=== PATIENT | male | born 1980 | race Caucasian/White ===

== ENCOUNTER → 2018-03-20 | Day surgery (SDC) | payer OTHER ==
[2018-03-17 13:44] VITALS: BMI 22.0
--- NOTE | 2018-03-19 09:02 | History and Physical ---
History & Physical Date Mar 19, 2018. Chief Complaint left ankle pain History of Present Illness The patient is a 37 year old male with complaints of left ankle pain that started after a fall from a significant height while hiking. He was taken to [facility] where he was diagnosed with a left distal tibia pilon fx and an external fixator was placed on the LLE. He also sustained a left proximal humerus fx and underwent a shoulder replacement or hemiarthroplasty on that shoulder. He is in a walking boot on the E because of a calcaneus fx. He was referred to us for surgical internal fixation of the left distal tibia pilon fx. Past Medical/Surgical History PMH: HTN, sleep apnea, depression/anxiety Social hx: 1/2 ppd smoker for 20 years, No alcohol use. Surgical hx: Left shoulder surgery. Allergies Coded Allergies: No Known Allergies (Unverified , 03/17/18) Home Medications Scheduled Enoxaparin (Lovenox), 30 MG SQ BID Fluoxetine (Prozac), 30 MG PO UD Scheduled PRN Acetaminophen (Tylenol), 1 TAB PO UD PRN for Pain Hydrocodone/Acetaminophen 5MG/325MG (Coleman 5MG/325MG), 1-2 TABLET PO UD PRN for Pain Physical Examination Skin: warm/dry, no rash Eyes: normal inspection ENT: normal ENT inspection Neck: supple, no adenopathy, trachea midline Respiratory/Chest: lungs clear, normal breath sounds, no respiratory distress Cardiovascular: regular rate, rhythm Abdomen / GI: normal bowel sounds, non tender Extremities: + pertinent finding (Left ankle: Ex fix in place. Minimal swelling. Pin sites are clean. No ROM or strength testing performed.) Neurologic/Psych: no motor/sensory deficits, alert, oriented x 3 Diagnosis Left ankle distal tibial pilon fx with ex fix on place Plan of Treatment Patient will be scheduled for an ORIF left distal tibial pilon fx and removal of ex fix. All potential risks, benefits, complications, alternatives, and rehab have been discussed with the patient and he wishes to proceed. He will be scheduled for 03.20.18 with either ASA 81 mg BID vs. Lovenox 40 mg SQ daily for DVT prophylaxis.
[~2018-03-20] VITALS: Ht 190.5 cm; Wt 81.8 kg
[~2018-03-20] MED LIST: ACET-1256 PO; ATROPINE SULFATE 0.1 MG/ML 5ML SYR IV PRN; BACITRACIN 50000 UNIT VIAL ONE; CEFAZOLIN 2000MG IV PUSH 15 ML IV SCH; CEFAZOLIN IV 2,000 MG in SYRINGE 0 ML IV SCH; CEFAZOLIN SOD 2000MG/15 ML IV PUSH ONE; DEXAMETHASONE SOD INJ 4 MG/ML VIAL ONE; ENOX30IN4 SQ; EpHEDrine SULFATE INJ 50 MG/ML AMP IV PRN; FENTANYL CITRATE INJ 50 MCG/1 ML 2 ML VIAL ONE; FLUO20CA35 PO; GLYCOPYRROLATE INJ 0.2 MG/ML VIAL ONE; HYDR-5688 PO; HYDROmorphone INJ 2 MG/ML SYR/VIAL ONE; LABETALOL HCL IV 5 MG/ML 20ML IV PRN; LACTATED RINGER'S 1000ML 1,000 ML IV SCH; LIDOCAINE HCL 2% 2 ML VIAL (20MG/ML) ONE; MEPERIDINE HCL 25 MG/ML CARP IV PRN; MIDAZOLAM HCL 1 MG/ML 2ML VIAL ONE; NEOSTIGMINE METHYLSULFATE 5 MG/5 ML SYR ONE; ONDANSETRON INJ 2 MG/ML 2 ML VIAL IV PRN; ONDANSETRON INJ 2 MG/ML 2 ML VIAL ONE; OXYC-57 PO; OXYCODONE/ACETAMINOPHEN 5-325 TAB PO PRN; PROM25TA9 PO; PROPOFOL IV EMULSION 10 MG/ML 20 ML VIAL ONE; ROCURONIUM BROMIDE 10 MG/ML 5 ML VIAL ONE; ROPIVACAINE 0.5% 5 MG/ML 30 ML VIAL ONE
--- NOTE | 2018-03-20 07:35 | History & Physical Bridge Note ---
H&P Re-Evaluation Bridge Note: I have examined the patient, reviewed the History & Physical and in the interval since the performance of the History & Physical I have noted the following changes of clinical significance: No changes noted
[2018-03-20 07:37] VITALS: BP 141/93; TEMP 35.5; O2SAT 98; Ht 190.5 cm; Wt 81.8 kg
--- NOTE | 2018-03-20 10:15 | Discharge Instructions ---
Discharge Instructions Date of Service Mar 20, 2018. Admission Reason for Admission: Displaced Pilon Fracture Of Left Tibia Discharge Discharge Diagnosis / Problem: left distal tibia pilon fracture Discharge Goals Goal(s): Decrease discomfort, Improve function Activity Recommendations Activity Limitations: per Instructions/Follow-up section Weightbearing Status: Left non-weightbearing . Instructions / Follow-Up Instructions / Follow-Up ACTIVITY RECOMMENDATIONS: Limitations: No weight bearing to affected limb at all times. SPECIAL CARE INSTRUCTIONS: * You may restart your Lovenox injections tomorrow, 7.28.18. * Some drainage onto the dressing is normal and is no cause for alarm. * Some swelling is natural especially after walking. * When resting, keep your foot elevated above the level of your heart. * Call [facility] if you notice: -Increased drainage -Fever over 101 degrees F -Severe constant pain BANDAGE: * Leave bandage/cast in place unless otherwise directed. * Keep bandage/cast dry at all times. FOLLOW UP VISIT WITH DR. YAN If appointment is not already scheduled: Please call [facility] after you get home today to schedule a follow-up appointment for [address] Yan at . Current Hospital Diet Patient's current hospital diet: Discharge Diet Recommended Diet: Regular Diet Pending Studies Studies pending at discharge: no Medical Emergencies . Who to Call and When: Medical Emergencies: If at any time you feel your situation is an emergency, please call 911 immediately. . Non-Emergent Contact Non-Emergency issues call your: Surgeon Call Non-Emergent contact if: temperature is above 101, your pain is not controlled, your pain is worsening . "Provider Documentation" section prepared by Wong Schaffer. .
--- NOTE | 2018-03-20 13:18 | [facility] Post Operative Brief Note ---
Immediate Operative Summary Operative Date Mar 20, 2018. Pre-Operative Diagnosis Left ankle tibial pilon fracture with external fixator in place. Post-Operative Diagnosis Left ankle tibial pilon fracture with external fixator in place. Procedure(s) Performed 1. Left ankle: Open reduction internal fixation Tibial Pilon (distal) fracture, 2. Left ankle Removal of Exteral Fixator Surgeon Dr Queenie Singletary Television Presenter Surgeon(s) Wong Schaffer PA-C Estimated Blood Loss 10 ML Findings Consistent with Post-Op Diagnosis Specimens none per surgeon Drains None Anesthesia Type General Regional Complication(s) none Disposition Accompanied Pt To Recover: no Disposition: Recovery Room / PACU
--- NOTE | 2018-03-20 13:21 | DIAGNOSTIC IMAGING REPORT ---
L ANKLE 2 VIEWS CLINICAL HISTORY: LEFT ANKLE ORIF fracture TECHNIQUE: Image intensifier COMPARISON STUDY: None FINDINGS: Fluoroscopy time 1 minutes 46 seconds. 4 images require. IMPRESSION: Image intensifier was utilized for intraoperative open reduction internal fixation. The above report was generated using voice recognition software. It may contain grammatical, syntax or spelling errors. Electronically signed by: Ash Gresham M.D. 03/20/2018 1:19 PM Dictated Date/Time: 03/20/2018 1:17 PM
[2018-03-20] MEDS: FENTANYL CITRATE INJ 50 MCG/1 ML 2 ML VIAL IV PRN ×3 (14:06→14:22)
[2018-03-20] MEDS: HYDROmorphone INJ 0.5 MG/0.5 ML SYR IV PRN ×2 (14:27→14:36)
--- NOTE | 2018-03-20 14:30 | DIAGNOSTIC IMAGING REPORT ---
L ANKLE MIN 3 VIEWS ROUTINE CLINICAL HISTORY: post op COMPARISON STUDY: Left ankle 03/20/2018. FINDINGS: Status post internal fixation of the distal left tibial fracture with cortical plate and screws. The alignment is near-anatomic. Hardware is intact. Overlying splint material obscures fine bony detail. IMPRESSION: Status post internal fixation of a distal left tibial fracture. The hardware appears intact. Electronically signed by: Victor M Mittal M.D. 03/20/2018 2:28 PM Dictated Date/Time: 03/20/2018 2:28 PM
--- NOTE | 2018-03-20 15:07 | OPERATIVE REPORT ---
DATE OF OPERATION: 03/20/2018 PREOPERATIVE DIAGNOSES: 1. Left tibial pilon fracture with displacement, intraarticular. 2. Retained external fixator. POSTOPERATIVE DIAGNOSES: Same as above. PROCEDURES: 1. Open reduction and internal fixation, left tibial pilon intraarticular fracture. 2. Removal of external fixator, left lower extremity. SURGEON: Paul Singletary DO. ASSISTANTS: Wong Schaffer PA-C and RUPA Black were present for patient positioning, sterile prep and drape, management of retractors and instruments. They were present through the critical portions of the case including wound closure, application of sterile dressing and transport of the patient to recovery. ANESTHESIA: General endotracheal tube with the popliteal and adductor canal blocks. SPECIMENS: None. DRAINS: None. COMPLICATIONS: None. BLOOD LOSS: 10 mL. PERTINENT HISTORY: This is a 37-year-old who sustained a fall from a height, approximately 15 feet. Initially treated at [facility], and then due to nature and complexity of the left lower extremity fracture, patient was then referred to my clinic for definitive care and management. Patient was scheduled for surgery as indicated. All potential risks, benefits, complications, alternatives, rehab, potential for incomplete relief of symptoms, need for further surgery, DVT, PE, , persistent pain, swelling, scarring, weakness, neurovascular injury, wound complications, hardware failure, nonunion, malunion were discussed with the patient. Patient decided to proceed with the procedure as indicated. DESCRIPTION OF PROCEDURE: The patient was given an adductor canal and popliteal block in the preop holding area, taken to the operative suite, placed supine on the operating table. After reviewing consent and identification of proper operative site, the patient was anesthetized, and endotracheal tube was placed. Tourniquet was applied high on the left thigh over the cast padding. Patient was then rolled prone over bolsters. All bony prominences were properly padded and protected. Next, the left lower extremity was then sterilely prepped with Betadine, and then the external fixator frame was removed followed by sterile prep of the bone pins, which were then also removed. Next, the left lower extremity was then sterilely prepped and draped in the usual fashion, elevated and exsanguinated with Esmarch bandage. Tourniquet inflated to 325 mmHg. Next, a 15 blade scalpel was used to make an incision on the posterolateral aspect of the left lower extremity. The incision was deepened through subcutaneous tissue. Meticulous hemostasis was achieved with electrocautery. Full thickness skin flaps developed. The sensory cutaneous nerves and the sural nerve were identified, freed, retracted, and protected. Fascia was then incised in line with skin incision followed by identification of the interval between the peroneal tendons and the flexor hallucis longus. Next, this interval was then carefully dissected with Metzenbaum scissors. Retractors were placed followed by identification of the posterior periosteum and the fracture of the posterior distal tibia. Next, the fracture was then mobilized using a curette, rongeur, dental pick, and a Taft elevator. Next, with careful manipulation and gentle traction at the heel, fracture was then grossly reduced, irrigated with sterile normal saline, and then clamped in place using large bone clamps. Next, a 0.062 inch K-wire was used to provisionally fix the fracture in near anatomic alignment confirmed with AP and lateral C-arm projections. Next, the posterior locking plate was then aligned in the posterior aspect of the tibia, and then multiple locking screws were placed into the plate aligning and fixing the fracture in near anatomic alignment and position. Next, a 3.5 mm cortical lag screw was placed across the medial fracture fragment of distal tibia to get further compression, and then, two 4.0 cannulated screws were placed percutaneously through the medial malleolus under live fluoroscopic assistance. Next, the wound was copiously irrigated with sterile normal saline until clear. The deep periosteum was closed using 2-0 Vicryl. The fascia was closed using 2-0 Vicryl. The dermis was closed using buried interrupted 3-0 Vicryl. Skin was closed with 4-0 nylon. Next, a small curette was used to curettage the small bone tunnel that was made from the external fixator. The pin sites were then irrigated with sterile normal saline. A sterile compressive dressing and bulky Jason Ceballos plaster splint were applied overwrapped with an Natalio wrap. The foot was held in neutral dorsiflexion after final radiographs were obtained. Next, tourniquet was released. The patient was awakened, rolled supine, taken to recovery in stable condition. I attest to the content of the Intraoperative Record and any orders documented therein. Any exception s are noted below.
[2018-03-20 15:10] VITALS: BP 138/82; PULSE 102; TEMP 36.3; O2SAT 98
--- NOTE | 2018-03-20 15:19 | Anesthesiology Progress Note ---
Anesthesia Post Op Note Date & Time Mar 20, 2018 at 15:19 Vital Signs Pain Intensity: 7 Vital Signs Past 12 Hours Date Time Temp Pulse Resp B/P (MAP) Pulse Ox O2 Delivery O2 Flow Rate FiO2 03/20/18 14:53 106 14 98 03/20/18 14:53 101 14 03/20/18 14:52 144/82 03/20/18 14:48 67 14 03/20/18 14:48 66 14 97 03/20/18 14:47 36.5 95 Room Air 03/20/18 14:47 144/78 03/20/18 14:43 99 16 03/20/18 14:43 102 16 95 03/20/18 14:42 140/81 03/20/18 14:40 91 16 03/20/18 14:40 91 16 96 03/20/18 14:37 136/83 03/20/18 14:35 87 16 03/20/18 14:35 98 16 94 03/20/18 14:31 139/87 03/20/18 14:30 81 12 03/20/18 14:30 83 12 100 03/20/18 14:29 88 16 100 03/20/18 14:29 85 16 03/20/18 14:27 132/79 03/20/18 14:24 60 16 03/20/18 14:24 60 16 100 03/20/18 14:22 144/87 03/20/18 14:20 148/87 03/20/18 14:19 62 13 03/20/18 14:19 60 13 100 03/20/18 14:14 77 13 100 03/20/18 14:14 75 13 03/20/18 14:13 79 16 03/20/18 14:13 72 16 100 03/20/18 14:11 144/109 03/20/18 14:10 143/85 03/20/18 14:08 69 13 03/20/18 14:08 70 13 100 03/20/18 14:07 143/85 03/20/18 14:03 91 15 03/20/18 14:03 92 15 100 03/20/18 14:01 145/93 03/20/18 13:58 69 17 97 03/20/18 13:58 71 17 03/20/18 13:56 132/98 03/20/18 13:56 120/87 03/20/18 13:53 36.3 74 12 120/87 100 Oxymask 10 03/20/18 07:37 35.5 18 141/93 (109) 98 Room Air Notes Mental Status: alert / awake / arousable, participated in evaluation Pt Amnestic to Procedure: Yes Nausea / Vomiting: adequately controlled Pain: adequately controlled Airway Patency, RR, SpO2: stable & adequate BP & HR: stable & adequate Hydration State: stable & adequate Anesthetic Complications: no major complications apparent
[2018-03-20 15:40] VITALS: BP 162/95; PULSE 110; TEMP 36.3; O2SAT 98
[2018-03-20 16:10] VITALS: BP 147/85; PULSE 82; TEMP 36.4; O2SAT 98
== END | disposition home or self-care (01) ==
LOC: C.ACU 06:31
PROVIDERS: ATTEND Orthopaedic Surgery Sports Medicine
DX: S82.872A Displaced pilon fracture of left tibia, initial encounter for closed fracture (principal); W17.89XA Other fall from one level to another, initial encounter; Y93.01 Activity, walking, marching and hiking; F17.200 Nicotine dependence, unspecified, uncomplicated; G47.33 Obstructive sleep apnea (adult) (pediatric); I10 Essential (primary) hypertension; Z79.01 Long term (current) use of anticoagulants; F32.9 Major depressive disorder, single episode, unspecified